=== PATIENT | male | born 1975 | race Caucasian/White ===

== ENCOUNTER 2023-03-01 00:36 | Day surgery (SDC) | payer BC, SELFPAY ==
[2023-02-02 11:41] VITALS: BMI 34.0
--- NOTE | 2023-02-27 11:04 | SUR.PREOP ---
Patient called regarding upcoming procedure. Left message regarding preop instructions, appointment times, and procedure prep.
[2023-03-01 08:24] VITALS: BP 145/96; PULSE 77; RESP 18; TEMP 36.6; O2SAT 100
[2023-03-01] MEDS: LACTATED RINGERS 1,000 ML 150 ML IV CONT (08:32)
--- NOTE | 2023-03-01 09:20 | PM.HPGS ---
History of Present Illness History of Present Illness Consent: Risks, benefits, and alternatives have been discussed and questions answered. Patient agrees to proceed with procedure. Chief complaint: neoplasm screening Narrative: Jatinder Morgan is a 47 year old male here for first screening colonoscopy Review of Systems Constitutional: Constitutional: Denies headache(s) and Denies weakness Eyes: Eyes: Denies blurry vision ENT: Reports Normal hearing present, Denies headache(s) and Denies neck pain Cardiovascular: Cardiovascular: Denies chest pain and Denies dyspnea Respiratory: Respiratory: Denies dyspnea Gastrointestinal: Gastrointestinal: Reports no additional gastrointestinal complaints Genitourinary: Genitourinary: Denies dysuria Musculoskeletal: Musculoskeletal: Denies neck pain Integumentary/Breasts: Skin/Breast: Denies dry skin Neurologic: Reports Normal hearing present, Denies headache(s) and Denies weakness Psychiatric: Psychiatric: Denies anxiety Endocrine: Endocrine: Denies change in body appearance Hematologic/Lymphatic: Hematologic/Lymphatic: Denies easy bleeding Allergic/Immunologic: Allergic/Immunologic: Denies urticaria PMFSH Past Medical History Medical History (Updated 03/01/23 @ 09:20 by Hesham Shaikh MD) Colon cancer screening Hypertension Hypothyroid Family History Family History Father Hypertension, Onset Age: 64 Family history of primary malignant neoplasm of liver, Onset Age: 64 Family history of malignant neoplasm of bone, Onset Age: 64 Family history of lung cancer Mother Family history of osteoarthritis Family history of allergic disorder Family history of arthritis Diabetes mellitus Hypertension Asthma Sibling Hypertension Other No family history of cardiovascular disease No family history of diabetes mellitus No family history of malignant neoplasm Social History Social History Social History: Caffeine-rarely Smoking status: Never smoker Tobacco type: cigarettes Smoking end date: 02/05/97 Alcohol intake: never Substance use: never Substance use type: does not use Living arrangements: with family Spiritual care concerns: No Meds Home Medications and Allergies Home Medications Medication Instructions Recorded Confirmed Type levothyroxine 100 mcg tablet 100 mcg PO DAILY #90 tabs 01/23/23 03/01/23 Rx lisinopril 5 mg tablet 5 mg PO DAILY #90 tabs 01/26/23 02/02/23 Rx Allergies Allergy/AdvReac Type Severity Reaction Status Date / Time shellfish derived Allergy Intermediate Difficulty Verified 03/01/23 08:23 Breathing Vital Signs Vital Signs - 24 hr 03/01/23 08:24 Temperature 97.9 F Pulse Rate 77 Respiratory Rate 18 Blood Pressure 145/96 H Pulse Oximetry 100 Oxygen Delivery Room Air Exam Const: General: comfortable and no acute distress HENMT: Face/Nose/Sinus: Normal nares present Eyes: General: appearance normal, both eyes and all related structures Neck: Neck: no JVD Resp: Auscultation: clear to auscultation bilaterally Cardio: Rate: regular rate Rhythm: regular rhythm GI: Inspection: non-distended GI Palp: Yes Soft to palpation Skin: General skin exam: normal color Neuro: General: gait normal Speech: normal speech Extrem: General: normal to inspection Psych: Mental Status: mental status grossly normal Assessment and Plan Assessment and plan (1) Colon cancer screening: Code(s): Z12.11 - Encounter for screening for malignant neoplasm of colon Status: Acute Assessment and Plan: colonoscopy
--- NOTE | 2023-03-01 09:25 | P.PNAN_ITS ---
Anes - Initial Pre Proc Eval Procedure: Operation Date: 03/01/23 10:00 Proposed Procedures p Screening Colonoscopy - Hesham Shaikh MD Date/Time: 03/01/23 09:25 Surgeon: Hesham Shaikh MD Pre Op Diagnosis: neoplasm screening Patient Data Age: 47 Gender: M Height: 1.83 m Weight: 113 kg Last Vital Signs Temp 97.9 F 03/01/23 08:24 Pulse 77 03/01/23 08:24 Resp 18 03/01/23 08:24 BP 145/96 H 03/01/23 08:24 Pulse Ox 100 03/01/23 08:24 O2 Del Method Room Air 03/01/23 08:24 Allergies Allergy/AdvReac Type Severity Reaction Status Date / Time shellfish derived Allergy Intermediate Difficulty Verified 03/01/23 08:23 Breathing Home Medications Medication Instructions Recorded Confirmed Type levothyroxine 100 mcg tablet 100 mcg PO DAILY #90 tabs 01/23/23 03/01/23 Rx lisinopril 5 mg tablet 5 mg PO DAILY #90 tabs 01/26/23 02/02/23 Rx Patient hx anesthesia problems: none Family hx anesthesia problems: none Results Review: All pre-operative results and documents have been reviewed as part of the pre- operative evaluation. [facility] Past Medical History Medical History (Updated 03/01/23 @ 09:20 by Hesham Shaikh MD) Colon cancer screening Hypertension Hypothyroid Family History Family History Father Hypertension, Onset Age: 64 Family history of primary malignant neoplasm of liver, Onset Age: 64 Family history of malignant neoplasm of bone, Onset Age: 64 Family history of lung cancer Mother Family history of osteoarthritis Family history of allergic disorder Family history of arthritis Diabetes mellitus Hypertension Asthma Sibling Hypertension Other No family history of cardiovascular disease No family history of diabetes mellitus No family history of malignant neoplasm Social History Social History Social History: Caffeine-rarely Smoking status: Never smoker Tobacco type: cigarettes Smoking end date: 02/05/97 Alcohol intake: never Substance use: never Substance use type: does not use Living arrangements: with family Spiritual care concerns: No Anes - Eval Final PreProcedure Day of Procedure 03/01/23 09:25 Patient weight: obese Heart: regular rate and rhythm Lungs: clear to auscultation Airway: Mallampati scale class II Neurological: alert and oriented Last oral intake: >/= 8 hours ASA classification: II Emergent: no Anesthetic plan: proceed Anesthesia type and monitoring: general GIVS and standard monitoring Results Review: All pre-operative results and documents have been reviewed as part of the pre- operative evaluation. Informed Consent: The patient's anesthetic plan and its attendant risks and benefits were discussed with the patient/family/POA. Questions were solicited and answers provided to the satisfaction of the patient/family/POA.
[2023-03-01 09:43] VITALS: BP 120/73; PULSE 77; RESP 17; O2SAT 96
[2023-03-01 09:53] VITALS: BP 122/76; PULSE 69; RESP 15; O2SAT 97
[2023-03-01 10:03] VITALS: BP 115/76; PULSE 68; RESP 18; O2SAT 98
== END 2023-03-01 10:20 | disposition home or self-care (01) ==
PROVIDERS: PCP Family Medicine; Visit Provider Internal Medicine Gastroenterology
PROC: 0DJD8ZZ Inspection of Lower Intestinal Tract, Via Natural or Artificial Opening Endoscopic (ICD-10-PCS; CPT 45378; principal; 2023-03-01 10:00)
DX: Z12.11 Encounter for screening for malignant neoplasm of colon (principal); K63.5 Polyp of colon; K57.30 Diverticulosis of large intestine without perforation or abscess without bleeding; I10 Essential (primary) hypertension; E03.9 Hypothyroidism, unspecified; E66.9 Obesity, unspecified; Z68.33 Body mass index [BMI] 33.0-33.9, adult; Z80.0 Family history of malignant neoplasm of digestive organs; Z80.8 Family history of malignant neoplasm of other organs or systems; Z80.1 Family history of malignant neoplasm of trachea, bronchus and lung; Z82.49 Family history of ischemic heart disease and other diseases of the circulatory system
CPT/HCPCS: 45380; 88305; J2001; J2704; J7120

== ENCOUNTER 2023-08-23 15:15 | Outpatient (CLI) | payer BC, SELFPAY ==
--- NOTE | ~2023-08-23 | US_ITS ---
EXAMINATION: US soft tissue head and neck DATE: 08/23/2023 15:28 INDICATION: Right cervical lymphadenopathy. TECHNIQUE: Multiple grayscale and Doppler ultrasound images of the right neck were obtained. COMPARISON: None FINDINGS: At the region of concern at the right neck is an enlarged lymph node with eccentric echogenic fatty h ilum which measures 3.7 x 3.2 x 2.0 cm. The lymph node is positioned along the anteroinferior to the parotid gland and posterior inferior to the retromandibular gland. IMPRESSION: 1. Mass of concern corresponds to an enlarged lymph node measuring 2.0 cm in short axis diameter. Dif ferential includes reactive lymph node, lymphoma or metastatic disease. Recommend ultrasound-guided c ore needle biopsy. Reviewed, dictated and finalized at location A. IMPRESSION: 1. Mass of concern corresponds to an enlarged lymph node measuring 2.0 cm in sh ort axis diameter. Differential includes reactive lymph node, lymphoma or metas tatic disease. Recommend ultrasound-guided core needle biopsy.
== END 2023-08-23 15:16 ==
PROVIDERS: PCP Family Medicine; Visit Provider Nurse Practitioner Family
DX: R59.0 Localized enlarged lymph nodes (principal)
CPT/HCPCS: 76536

== ENCOUNTER 2023-10-17 09:27 | Outpatient (CLI) | payer BC, SELFPAY ==
--- NOTE | ~2023-10-17 | US_ITS ---
EXAMINATION: US biopsy lymph node DATE: 10/17/2023 10:44 INDICATION: Localized enlarged lymph nodes. TECHNIQUE: The procedure including the risks, benefits, and alternatives was discussed with the patie nt. Risks discussed included bleeding and infection. The patient understood the risks and agreed to p roceed. The skin overlying the right neck was prepped and draped in usual sterile fashion. Anestheti c was administered with 1% lidocaine subcutaneously. An 18 gauge core biopsy needle was then used to obtain 6 core biopsy specimens under continuous sonographic guidance. The entry site was cleaned and dressed. There were no immediate complications. FINDINGS: Ultrasound images demonstrate the needle in a 3.4 x 1.6 cm right high internal jugular aimee n lymph node. IMPRESSION: 1. Ultrasound-guided core needle biopsy of an enlarged high right internal jugular chain lymph node. Reviewed, dictated and finalized at location A. IMPRESSION: 1. Ultrasound-guided core needle biopsy of an enlarged high right internal jugu lar chain lymph node.
== END 2023-10-17 09:28 | disposition home or self-care (01) ==
LOC: ANHIMG 09:33
PROVIDERS: PCP Family Medicine; Visit Provider Family Medicine
DX: C08.0 Malignant neoplasm of submandibular gland (principal)
CPT/HCPCS: 38505; 76942; 88184; 88305; 88342

== ENCOUNTER 2024-12-12 08:56 | Outpatient (CLI) | payer BC, SELFPAY ==
--- NOTE | ~2024-12-12 | MMUS_ITS ---
EXAMINATION: MM diagnostic farooq BI w mike, US breast LT limited INDICATION: 49-year old MALE; presents for evaluation of palpable lump for about a month in the left breast. 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 COMPARISON: None TECHNIQUE: Digital breast tomosynthesis CC and MLO views of the BILATERAL breast and spot compression views of the palpable area in the left breast were obtained with computer-aided detection to assist in interpretation of the study. A radiopaque skin marker identifies the location of the palpable lump in the left breast. FINDINGS: The breasts are almost entirely fatty.There is no significant volume of fibroglandular tissue in BILATERAL breast. There is no mammographic abnormality that correlates to the radiopaque skin marker. There are no suspicious masses, calcifications, architectural distortion or any other abnormality in BILATERAL breast. LEFT BREAST ULTRASOUND FINDINGS: Targeted evaluation of the area of palpable lump in the left breast was completed. Normal appearing fibroglandular tissue is identified in the area of palpable lump. There are no suspicious cystic or solid mass seen. IMPRESSION: FINDINGS COMPATIBLE WITH GYNECOMASTIA CORRELATES TO THE AREA OF PALPABLE LUMP IN THE LEFT BREAST . FURTHER EVALUATION OF PATIENT'S PALPABLE LUMP SHOULD BE BASED ON CLINICAL IMPRESSION. FOLLOW-UP CLINICALLY WARRANTED. RECOMMENDATION: CLINICAL MANAGEMENT OF PALPABLE LUMP BI-RADS 2, BENIGN Reviewed, dictated and finalized at location B. TECHNICIAN IMPRESSION: FINDINGS COMPATIBLE WITH GYNECOMASTIA CORRELATES TO THE AREA OF PALPABLE LUMP I N THE LEFT BREAST . FURTHER EVALUATION OF PATIENT'S PALPABLE LUMP SHOULD BE BAS ED ON CLINICAL IMPRESSION. FOLLOW-UP CLINICALLY WARRANTED. RECOMMENDATION: CLINICAL MANAGEMENT OF PALPABLE LUMP BI-RADS 2, BENIGN
== END 2024-12-12 08:57 | disposition home or self-care (01) ==
PROVIDERS: Visit Provider Family Medicine
DX: N63.20 Unspecified lump in the left breast, unspecified quadrant (principal); Z85.858 Personal history of malignant neoplasm of other endocrine glands; Z92.3 Personal history of irradiation; R92.8 Other abnormal and inconclusive findings on diagnostic imaging of breast
CPT/HCPCS: 76642; 77062; 77066; G0279